=== PATIENT | male | born 1995 | race African-American/Black ===

== ENCOUNTER 2017-12-06 18:44 | Emergency (ER) | payer OTHER | END 2017-12-06 19:33 | disposition home or self-care (01) | LOC: ER 19:33 | DX: K08.89 Other specified disorders of teeth and supporting structures (principal) | CPT/HCPCS: 99283 ==

== ENCOUNTER 2021-03-17 15:19 | Emergency (ER) | payer SELFPAY ==
[~2021-03-17] VITALS: Ht 165.1 cm; Wt 68.2 kg
[~2021-03-17 15:19] MED LIST: HYDR-3164 PO; PENI500T PO
[2021-03-17 15:55] VITALS: BP 120/60
[2021-03-17] MEDS ORDERED: DEXAMETHASONE 4 MG TABLET PO ONE (16:00)
[2021-03-17] MEDS ORDERED: FAMOTIDINE 20 MG TABLET. PO ONE (16:00)
[2021-03-17] MEDS ORDERED: diphenhydrAMINE HCL 25 MG CAPSULE PO ONE (16:00)
[2021-03-17] MEDS ORDERED: METH4TAB2 PO (16:21)
[2021-03-17] MEDS ORDERED: TRIA15OI9 TP (16:21)
--- NOTE | 2021-03-17 16:21 | PHYS DOC ---
Past Medical History Past Medical History: No Pertinent History Past Surgical History: No Surgical History Smoking Status: Current Every Day Smoker Alcohol Use: Occasionally Drug Use: Marijuana General Adult EDM: Chief Complaint: ITCHING HPI: HPI: Patient is a 25 year old male who presents with states every summer he gets a dermatitis or eczema type rash that is very itchy. He states that it is always on his inner sides of his arms and goes over the mid upper forearm over the inside of the elbow and up fdc to the inner side of the arm. He also has patches along his anterior shoulders bilaterally. There is no signs of infection he denies any tenderness or drainage. He denies fever. He denies any new soaps, oils, medications, detergents or lotions. Denies any pain. Review of Systems: Review of Systems: Constitutional: Denies fever or chills. [] Eyes: Denies change in visual acuity. [] HENT: Denies nasal congestion or sore throat. [] Respiratory: Denies cough or shortness of breath. [] Cardiovascular: Denies chest pain or edema. [] GI: Denies abdominal pain, nausea, vomiting, bloody stools or diarrhea. [] : Denies dysuria. [] Musculoskeletal: Denies back pain or joint pain. [] Integument: + Generalized rash. [] Neurologic: Denies headache, focal weakness or sensory changes. [] Endocrine: Denies polyuria or polydipsia. [] Lymphatic: Denies swollen glands. [] Psychiatric: Denies depression or anxiety. [] Heart Score: C/O Chest Pain: No Risk Factors: Risk Factors: DM, Current or recent (<one month) smoker, HTN, HLP, family history of CAD, obesity. Risk Scores: Score 0 - 3: 2.5% MACE over next 6 weeks - Discharge Home Score 4 - 6: 20.3% MACE over next 6 weeks - Admit for Clinical Observation Score 7 - 10: 72.7% MACE over next 6 weeks - Early Invasive Strategies Current Medications: Current Medications Medications (Trade) Dose Ordered Sig/Power Start Time Stop Time Status Last Admin Dose Admin Dexamethasone (Decadron) 10 mg 1X ONCE 03/17/21 16:00 03/17/21 16:05 DC Diphenhydramine HCl (Benadryl) 50 mg 1X ONCE 03/17/21 16:00 03/17/21 16:05 DC Famotidine (Pepcid) 20 mg 1X ONCE 03/17/21 16:00 03/17/21 16:05 DC Allergies: Allergies: Allergies Coded Allergies Type Severity Reaction Last Updated Verified No Known Drug Allergies 12/06/17 No Physical Exam: PE: Constitutional: Well developed, well nourished, no acute distress, non-toxic a ppearance. [] HENT: Normocephalic, atraumatic, bilateral external ears normal, oropharynx moist, no oral exudates, nose normal. [] Eyes: PERRLA, EOMI, conjunctiva normal, no discharge. [] Neck: Normal range of motion, no tenderness, supple, no stridor. [] Cardiovascular:Heart rate regular rhythm, no murmur [] Lungs & Thorax: Bilateral breath sounds clear to auscultation [] Abdomen: Bowel sounds normal, soft, no tenderness, no masses, no pulsatile masses. [] Skin: Warm, dry, no erythema, eczema and dermatitis type rash to bilateral inner arms and shoulders rash. [] Back: No tenderness, no CVA tenderness. [] Extremities: No tenderness, no cyanosis, no clubbing, ROM intact, no edema. [] Neurologic: Alert and oriented X 3, normal motor function, normal sensory function, no focal deficits noted. [] Psychologic: Affect normal, judgement normal, mood normal. [] EKG: EKG: [] Radiology/Procedures: Radiology/Procedures: [] Course & Med Decision Making: Course & Med Decision Making Pertinent Labs and Imaging studies reviewed. (See chart for details) See HPI. Patient has what looks like an dermatitis type of eczema. The area is almost scaly. No signs of infection. No drainage or tenderness. Afebrile. Alert and oriented x4. Ambulatory steady gait. Speaks in full clear sentences. No angioedema. No respiratory distress or wheezing. Lungs are clear all station all lobes. Patient is given dexamethasone, Benadryl, Pepcid in the ED. [] Dragon Disclaimer: Dragon Disclaimer: This electronic medical record was generated, in whole or in part, using a voice recognition dictation system. Departure Departure Impression: Primary Impression: Rash and nonspecific skin eruption Disposition: HOME / SELF CARE / HOMELESS Condition: STABLE Referrals: UNKNOWN PCP NAME (PCP) Patient Instructions: Eczema Additional Instructions: Follow-up with your primary care physician or a business center attendant. Use medication as prescribed. Take medication with food. Scripts Triamcinolone Acetonide (TRIAMCINOLONE ACETONIDE 0.5% OINT) 15 Gm Oint...g. 1 HOSSEIN TP PRN TID PRN for rash, #30 GM 0 Refills apply to affected area(s) Prov: LANCE LYNN APRN 03/17/21 Methylprednisolone (MEDROL) 4 Mg Tab.ds.pk 1 PKG PO UD, #1 PKG Prov: LANCE LYNN APRN 03/17/21 LANCE LYNN APRN Mar 17, 2021 16:21
[2021-03-17 17:04] LABS: BILIRUBIN,URINE NEGATIVE (NEG); CLARITY,URINE CLEAR; COLOR,URINE YELLOW; NITRITE,URINE NEGATIVE (NEG); PROTEIN,URINE NEGATIVE (NEG-TRACE)
[2021-03-17 17:11] LABS: RBC,URINE OCC /HPF (0-2)
[2021-03-17 17:12] LABS: BACTERIA,URINE FEW /HPF (0-FEW)
[2021-03-17] MEDS ORDERED: metroNIDAZOLE 500 MG TABLET PO ONE (17:15)
== END 2021-03-17 16:48 | disposition home or self-care (01) ==
LOC: ER 15:19
DX: R21 Rash and other nonspecific skin eruption (principal); F17.200 Nicotine dependence, unspecified, uncomplicated
CPT/HCPCS: 81001; 87086; 87491; 87591; 99284; Q0163

== ENCOUNTER 2021-07-02 18:30 | Emergency (ER) | payer SELFPAY ==
[~2021-07-02 18:30] MED LIST changes: +METH4TAB2 PO; +TRIA15OI9 TP
== END 2021-07-02 21:03 | disposition left against medical advice (07) ==
LOC: ER 18:30
DX: R21 Rash and other nonspecific skin eruption (principal); Z53.21 Procedure and treatment not carried out due to patient leaving prior to being seen by health care provider

== ENCOUNTER 2021-07-03 21:07 | Emergency (ER) | payer SELFPAY ==
[~2021-07-03] VITALS: Ht 167.6 cm; Wt 65.0 kg
--- NOTE | 2021-07-03 22:53 | PHYS DOC ---
Past Medical History Past Medical History: No Pertinent History Additional Past Medical Histor: ADHD Past Surgical History: No Surgical History Smoking Status: Current Every Day Smoker Alcohol Use: Occasionally Drug Use: Marijuana General Adult EDM: Chief Complaint: OTHER COMPLAINTS HPI: HPI: Patient is a 26 year old male who presents with runny nose, headache, sinus pressure for 2 days. "I also have this rash on my arms that I get every winter". "I was seen here last winter given a steroid cream which really helped my itching". Patient denies fever. Denies cough, shortness of breath, nausea/vomiting/diarrhea. Patient has not been taking any medications at home to treat symptoms denies medical history. Patient denies being vaccinated for COVID-19. Review of Systems: Review of Systems: ROS At least 10 ROS systems have been reviewed and are negative except as documented in the HPI. General: Negative except as outlined in HPI above. Skin: Negative except as outlined in HPI above. HEENT: Negative except as outlined in HPI above. Neck: Negative except as outlined in HPI above. Respiratory: Negative except as outlined in HPI above.. Cardiovascular: Negative except as outlined in HPI above. Abdomen: Negative except as outlined in HPI above. : Negative except as outlined in HPI above. Back/MSK: Negative except as outlined in HPI above. Neuro: Negative except as outlined in HPI above. Psych: Negative except as outlined in HPI above. Heart Score: C/O Chest Pain: No Risk Factors: Risk Factors: DM, Current or recent (<one month) smoker, HTN, HLP, family history of CAD, obesity. Risk Scores: Score 0 - 3: 2.5% MACE over next 6 weeks - Discharge Home Score 4 - 6: 20.3% MACE over next 6 weeks - Admit for Clinical Observation Score 7 - 10: 72.7% MACE over next 6 weeks - Early Invasive Strategies Current Medications: Current Medications Medications (Trade) Dose Ordered Sig/Power Start Time Stop Time Status Last Admin Dose Admin Hydrocortisone (Cortaid) 1 [place] TID 07/03/21 23:00 Allergies: Allergies: Allergies Coded Allergies Type Severity Reaction Last Updated Verified No Known Drug Allergies 12/06/17 No Physical Exam: PE: Constitutional: Well developed, well nourished, no acute distress, non-toxic appearance. [] HENT: Normocephalic, atraumatic, bilateral external ears normal, oropharynx moist, no oral exudates, nose normal. [] Eyes: PERRLA, EOMI, conjunctiva normal, no discharge. [] Neck: Normal range of motion, no tenderness, supple, no stridor. [] Cardiovascular:Heart rate regular rhythm, no murmur [] Lungs & Thorax: Bilateral breath sounds clear to auscultation [] Abdomen: Bowel sounds normal, soft, no tenderness, no masses, no pulsatile masses. [] Skin: Warm, dry, no erythema, pruritic rash, erythema Back: No tenderness, no CVA tenderness. [] Extremities: No tenderness, no cyanosis, no clubbing, ROM intact, no edema. [] Neurologic: Alert and oriented X 3, normal motor function, normal sensory function, no focal deficits noted. [] Psychologic: Affect normal, judgement normal, mood normal. [] Current Patient Data: Vital Signs: Vital Signs Date Time Temp Pulse Resp B/P (MAP) Pulse Ox O2 Delivery O2 Flow Rate FiO2 07/03/21 22:01 97.8 76 16 115/63 (80) 98 Room Air 97.8 EKG: EKG: [] Radiology/Procedures: Radiology/Procedures: [] Course & Med Decision Making: Course & Med Decision Making Pertinent Labs and Imaging studies reviewed. (See chart for details) [] 26-year-old male presents to the emergency room with nasal congestion, sinus pressure for 2 days. Patient is also reporting contact dermatitis to bilateral arms. Patient given hydrocortisone cream. Advised patient to take Motrin at home for headache. Patient needs to be taking Mucinex DM to help with symptoms. Patient is hemodynamically stable. Discussed return precautions. Patient verbalizes understanding of discharge instructions. Dragon Disclaimer: Donny Disclaimer: This electronic medical record was generated, in whole or in part, using a voice recognition dictation system. Departure Departure Impression: Primary Impression: Sinus congestion Additional Impression: Contact dermatitis and eczema Disposition: HOME / SELF CARE / HOMELESS Condition: STABLE Referrals: NO PCP (PCP) Patient Instructions: Contact Dermatitis, [id number], Sinus Headache, [id number] Additional Instructions: He was in the emergency room for sinus pressure along with itchy rash. You were given hydrocortisone cream to apply to your skin. Also Aquaphor will help with symptoms. Take a ibuprofen for headache. Purchase Mucinex DM [id number] to help with your sinus symptoms. Drink plenty of fluids. Return to the emergency room if you have worsening symptoms or concerns. Otherwise follow-up with your PCP if symptoms do not resolve. EMERGENCY DEPARTMENT GENERAL DISCHARGE INSTRUCTIONS Thank you for coming to [facility] Emergency Department (ED) today and trusting us with you care. We trust that you had a positive experience in our Emergency Department. If you wish to speak to the department management, you may call the Director at [phone]. YOUR FOLLOW UP INSTRUCTIONS ARE FOLLOWS: 1. Do you have a private Doctor? If you do not have a private doctor, please ask for a resource list of physicians or clinics that may be able to assist you with follow up care. 2. The Emergency Physicain has interpreted your x-rays. The X-Ray specialist will also review them. If there is a change in the findings, you will be notified in 48 hours when at all possible. 3. A lab test or culture has been done, your results will be reviewed and you will be notified if you need a change in treatment. ADDITIONAL INSTRUCTIONS AND INFORMATION: 1. Your care today has been supervised by a physician who is specially trained in emergency care. Many problems require more than one evaluation for a complete diagnosis and treatment. We recommend that you schedule your follow up appointment as recommended to ensure complete treatment of you illness or injury. If you are unable to obtain follow up care and continue to have a problem, or if your condition worsens, we recommend that you return to the ED. 2. We are not able to safely determine your condition over the phone nor are we able to give sound medical advice over the phone. For these safety reasons, if you call for medical advice we will ask you to come to the ED for further evaluation. 3. If you have any questions regarding these discharge instructions please call the ED at [phone]. SAFETY INFORMATION: In the interest of safety, wellness, and injury prevention; we encourage you to wear your sealbelt, if you smoke; quite smoking, and we encourage family to use a protective helmet for bicycling and other sporting events that present an increased risk for head injury. IF YOUR SYMPTOMS WORSEN OR NEW SYMPTOMS DEVELOP, OR YOU HAVE CONCERNS ABOUT YOUR CONDITION; OR IF YOUR CONDITION WORSENS WHILE YOU ARE WAITING FOR YOUR FOLLOW UP APPOINTMENT; EITHER CONTACT YOUR PRIMARY CARE DOCTOR, THE PHYSICIAN WHOSE NAME AND NUMBER YOU WERE GIVEN, OR RETURN TO THE ED IMMEDIATELY. SANJUANA SEN APRN Jul 03, 2021 22:53
[2021-07-03] MEDS ORDERED: HYDROCORTISONE 1% TOPICAL CREAM 30GM TUBE. TP SCH (23:00)
== END 2021-07-03 23:23 | disposition home or self-care (01) ==
LOC: ER 21:07
DX: R09.81 Nasal congestion (principal); L25.9 Unspecified contact dermatitis, unspecified cause; R51.9 Headache, unspecified; R21 Rash and other nonspecific skin eruption; F17.200 Nicotine dependence, unspecified, uncomplicated; F90.9 Attention-deficit hyperactivity disorder, unspecified type
CPT/HCPCS: 99283

== ENCOUNTER 2021-08-19 10:52 | Emergency (ER) | payer BC ==
[~2021-08-19] VITALS: Ht 165.1 cm; Wt 65.0 kg
[2021-08-19 13:01] VITALS: BP 110/60
[2021-08-19] MEDS ORDERED: SULF1TAB23 PO (13:10)
--- NOTE | 2021-08-19 13:10 | PHYS DOC ---
Past Medical History Past Medical History: No Pertinent History Additional Past Medical Histor: ADHD Past Surgical History: No Surgical History Smoking Status: Current Every Day Smoker Alcohol Use: Occasionally Drug Use: Marijuana General Adult EDM: Chief Complaint: ABSCESS HPI: HPI: Day and Patient is a 26 year old male with no significant medical history who presents the ED today with an abscess on the right cheek that began 2 days ago. Patient states he attempted to drain it and was unsuccessfully. Denies any fever. Patient is eating his food in the ED Review of Systems: Review of Systems: Constitutional: Denies fever or chills. [] Musculoskeletal: Denies back pain or joint pain. [] Integument: Reports right cheek abscess Neurologic: Denies headache, focal weakness or sensory changes. [] Psychiatric: Denies depression or anxiety. [] Heart Score: C/O Chest Pain: N/A Risk Factors: Risk Factors: DM, Current or recent (<one month) smoker, HTN, HLP, family history of CAD, obesity. Risk Scores: Score 0 - 3: 2.5% MACE over next 6 weeks - Discharge Home Score 4 - 6: 20.3% MACE over next 6 weeks - Admit for Clinical Observation Score 7 - 10: 72.7% MACE over next 6 weeks - Early Invasive Strategies Allergies: Allergies: Allergies Coded Allergies Type Severity Reaction Last Updated Verified No Known Drug Allergies 12/06/17 No Physical Exam: PE: Constitutional: Well developed, well nourished, no acute distress, non-toxic appearance. [] Skin: Right cheek with an indurated erythematous firm region roughly 1.5 cm with a scabbed up center from patient trying to drain it. There is no fluctuance to this region. The area is warm and very tender to touch. I did attempt to push on the region nothing is coming out. Clean-shaven sommers region. Back: No tenderness, no CVA tenderness. [] Extremities: No tenderness, no cyanosis, no clubbing, ROM intact, no edema. [] Neurologic: Alert and oriented X 3, normal motor function, normal sensory function, no focal deficits noted. [] Psychologic: Affect normal, judgement normal, mood normal. [] Current Patient Data: Vital Signs: Vital Signs Date Time Temp Pulse Resp B/P (MAP) Pulse Ox O2 Delivery O2 Flow Rate FiO2 08/19/21 13:01 98.1 76 16 110/60 (77) 97 Room Air 98.1 EKG: EKG: [] Radiology/Procedures: Radiology/Procedures: [] Course & Med Decision Making: Course & Med Decision Making Pertinent Labs and Imaging studies reviewed. (See chart for details) This is a 26-year-old male patient presenting to the ED today with an abscess to the right cheek that began 2 days ago, unfortunately patient has attempted to drain it himself this morning with no success. The area is very firm and erythematous, there is nothing to drain. Recommended warm compresses to the area, D/c on Bactrim. He states he had tetanus 2-1/2 years ago Dragon Disclaimer: Donny Disclaimer: This electronic medical record was generated, in whole or in part, using a voice recognition dictation system. Departure Departure Impression: Primary Impression: Abscess of face Disposition: HOME / SELF CARE / HOMELESS Condition: STABLE Referrals: NO PCP (PCP) follow up with your doctor in one week Patient Instructions: Abscess Additional Instructions: You have an abscess on the right cheek. Please apply warm compresses to the area twice a day. Use the prescribed medications as ordered. Ensure you complete your oral antibiotics. Follow-up with your doctor within 1 week. Please do not shave your right cheek until this infection has cleared up Scripts Sulfamethoxazole/Trimethoprim (BACTRIM 400-80 MG TABLET) 1 Each Tablet 1 TAB PO BID for 10 Days, #20 TAB 0 Refills Prov: SUSAN ARAUJO APRN 08/19/21 SUSAN ARAUJO APRN Aug 19, 2021 13:10
== END 2021-08-19 13:24 | disposition home or self-care (01) ==
LOC: ER 10:52
DX: L02.01 Cutaneous abscess of face (principal); F17.200 Nicotine dependence, unspecified, uncomplicated; F90.9 Attention-deficit hyperactivity disorder, unspecified type
CPT/HCPCS: 99283